=== PATIENT | male | born 1975 | race Caucasian/White ===

== ENCOUNTER 2020-03-10 13:54 | Emergency (ER) | payer BC, OTHER | END 2020-03-10 14:33 | disposition home or self-care (01) | LOC: JVIRT 13:54 | DX: Z11.59 Encounter for screening for other viral diseases (principal) | CPT/HCPCS: C9803; Q3014-GT; U0003 ==

== ENCOUNTER 2021-06-12 08:50 | Day surgery (SDC) | payer BC ==
[2021-06-11 10:33] VITALS: BMI 26.6
[2021-06-12] MEDS ORDERED: fentaNYL CITRATE 250 MCG/5 ML VIAL ONE (10:04)
[2021-06-12] MEDS ORDERED: MIDAZOLAM HCL 2 MG/2 ML SINGLE DOSE VIAL ONE (10:04)
[2021-06-12] MEDS ORDERED: EPINEPHrine 1:1,000 1,000 MCG/ML ML ONE (10:27)
[2021-06-12] MEDS ORDERED: BUPIVACAINE HCL/PF 0.25% (2.5MG/ML) 10 ML VIAL ONE (10:27)
[2021-06-12] MEDS ORDERED: ceFAZolin SODIUM 1 GM VIAL ONE (10:58)
[2021-06-12] MEDS ORDERED: ONDANSETRON 4 MG/2 ML VIAL ONE (11:01)
[2021-06-12] MEDS ORDERED: KETOROLAC TROMETHAMINE 30 MG/1 ML VIAL ONE (11:01)
[2021-06-12] MEDS ORDERED: DEXAMETHASONE SOD PHOSPHATE 4 MG/1 ML VIAL ONE (11:01)
[2021-06-12] MEDS ORDERED: ACETAMINOPHEN INJECTION 100 ML IVPB ONE (11:11)
[2021-06-12] MEDS ORDERED: ONDANSETRON 4 MG/2 ML VIAL IVPUSH PRN (11:37)
[2021-06-12] MEDS ORDERED: oxyCODONE HCL 5 MG TABLET PO PRN (11:37)
[2021-06-12] MEDS ORDERED: LACTATED RINGERS SOLUTION 1,000 ML IV SCH (11:45)
[2021-06-12 12:53] VITALS: TEMP 97.7
[2021-06-12 13:19] VITALS: BP 126/85; PULSE 52
== END 2021-06-12 13:15 | disposition home or self-care (01) ==
LOC: FASU 08:50
PROVIDERS: ATTEND Orthopaedic Surgery Sports Medicine
PROC: 0SBC4ZZ Excision of Right Knee Joint, Percutaneous Endoscopic Approach (ICD-10-PCS; principal; 2021-06-12 11:06)
PROC: 0SQC4ZZ Repair Right Knee Joint, Percutaneous Endoscopic Approach (ICD-10-PCS; 2021-06-12 11:06)
DX: S83.241A Other tear of medial meniscus, current injury, right knee, initial encounter (principal); S83.31XA Tear of articular cartilage of right knee, current, initial encounter; X58.XXXA Exposure to other specified factors, initial encounter; Y93.9 Activity, unspecified; Y92.9 Unspecified place or not applicable
CPT/HCPCS: 94760

== ENCOUNTER 2021-09-04 22:12 | Emergency (ER) | payer BC ==
[2021-09-04 22:25] VITALS: BMI 26.6
[2021-09-04 22:31] VITALS: BP 137/92; PULSE 64; TEMP 98.7
== END 2021-09-04 23:56 | disposition home or self-care (01) ==
LOC: FER 22:12
DX: S01.21XA Laceration without foreign body of nose, initial encounter (principal); W21.02XA Struck by soccer ball, initial encounter
CPT/HCPCS: 99281-25